=== PATIENT | male | born 1960 | race Caucasian/White ===

== ENCOUNTER 2018-06-15 09:37 | Observation (INO) | payer BC ==
[2018-06-15 10:41] LABS: BASO % 0.7 % (0.0-1.0); EOS # 0.1 10^3/uL (0.0-0.50); HEMOGLOBIN 17.2 g/dl (13.5-17.5); IMMATURE GRANULOCYTE % 0.3 % (0-3.0); LYMPH # 1.7 10^3/uL (1.5-4.5); LYMPH % 28.8 % (24.0-44.0); MEAN CORPUSCULAR HEMOGLOBIN 32.8 pg (27.0-33.0); MEAN CORPUSCULAR VOLUME 89.5 fl (80.0-96.0); MONO # 0.5 10^3/uL (0.0-0.8); NEUTROPHILS # 3.7 10^3/uL (1.8-7.7); NEUTROPHILS % 61.2 % (36.0-66.0); PLATELET COUNT, AUTOMATED 224 10^3/uL (150-450); RED BLOOD COUNT 5.25 10^6/uL (4.30-6.10); RED CELL DISTRIBUTION WIDTH 12.1 % (11.5-14.5); VENOUS BASE EXCESS -1.5 (-2.0-2.0); VENOUS HCO3 23.9 MEQ/L (23.0-27.0); VENOUS PARTIAL PRESSURE CO2 42.7 mmHg (38.0-50.0); VENOUS PARTIAL PRESSURE O2 44.6 mmHg (30.0-50.0); VENOUS PH 7.366 UNITS (7.330-7.430); VENOUS STANDARD HCO3 22.7 MEQ/L; VENOUS TOTAL CO2 25.2 MEQ/L (24.0-28.0)
[2018-06-15 10:46] LABS: MEAN CORPUSCULAR HGB CONC 36.5 g/dl (32.0-36.5)
[2018-06-15 10:53] LABS: INR 0.95; PROTHROMBIN TIME 12.8 SECONDS (12.1-14.4)
[2018-06-15 11:13] LABS: ANION GAP 9 MEQ/L (8-16); BLOOD UREA NITROGEN 20 MG/DL (7-18); CALCIUM LEVEL 9.2 MG/DL (8.5-10.1); CARBON DIOXIDE LEVEL 24 MEQ/L (21-32); CHLORIDE LEVEL 105 MEQ/L (98-107); CPK CREATINE PHOSPHOKINASE 47 U/L (39-308); CREATININE FOR GFR 1.04 MG/DL (0.70-1.30); FREE T4 1.03 NG/DL (0.76-1.46); GLOMERULAR FILTRATION RATE > 60.0 (>56); GLUCOSE, FASTING 211 MG/DL (70-100); POTASSIUM SERUM 4.1 MEQ/L (3.5-5.1); SODIUM LEVEL 138 MEQ/L (136-145); TROPONIN I < 0.02 NG/ML (< 0.10)
[2018-06-15 11:19] LABS: CK-MB VALUE MASS < 1.0 NG/ML (<3.6); MB/CK RELATIVE INDEX 2.12 (< OR =4); THYROID STIMULATING HORMONE 0.804 uIU/ML (0.358-3.740)
[2018-06-15] MEDS: NS 500 ML IV (12:22)
[2018-06-15] MEDS ORDERED: BISACODYL 5 MG TAB PO (13:00)
[2018-06-15] MEDS ORDERED: ONDANSETRON 4MG/2ML VIAL (J2405) IV (13:00)
[2018-06-15] MEDS: NS 1,000 ML IV ×2 (13:00→21:02)
[2018-06-15] MEDS ORDERED: ACETAMINOPHEN TAB 650MG DOSE (2X325MG) PO (13:00)
[2018-06-15 16:51] LABS: INFLUENZA A AMPLIFICATION NEGATIVE (NEGATIVE); INFLUENZA B AMPLIFICATION NEGATIVE (NEGATIVE)
[2018-06-15 16:53] LABS: CK-MB VALUE MASS < 1.0 NG/ML (<3.6); CPK CREATINE PHOSPHOKINASE 48 U/L (39-308); MB/CK RELATIVE INDEX 2.08 (< OR =4)
[2018-06-16 00:51] LABS: CK-MB VALUE MASS < 1.0 NG/ML (<3.6); CPK CREATINE PHOSPHOKINASE 64 U/L (39-308); MB/CK RELATIVE INDEX 1.56 (< OR =4)
[2018-06-16 05:54] LABS: ANION GAP 9 MEQ/L (8-16); BLOOD UREA NITROGEN 14 MG/DL (7-18); CALCIUM LEVEL 8.2 MG/DL (8.5-10.1); CARBON DIOXIDE LEVEL 23 MEQ/L (21-32); CHLORIDE LEVEL 110 MEQ/L (98-107); CREATININE FOR GFR 0.99 MG/DL (0.70-1.30); GLOMERULAR FILTRATION RATE > 60.0 (>56); GLUCOSE, FASTING 227 MG/DL (70-100); POTASSIUM SERUM 4.2 MEQ/L (3.5-5.1); SODIUM LEVEL 142 MEQ/L (136-145)
[2018-06-16 06:35] LABS: HEMATOCRIT 43.5 % (42.0-52.0); HEMOGLOBIN 15.5 g/dl (13.5-17.5); MEAN CORPUSCULAR HEMOGLOBIN 32.8 pg (27.0-33.0); MEAN CORPUSCULAR HGB CONC 35.6 g/dl (32.0-36.5); MEAN CORPUSCULAR VOLUME 92.2 fl (80.0-96.0); PLATELET COUNT, AUTOMATED 196 10^3/uL (150-450); RED BLOOD COUNT 4.72 10^6/uL (4.30-6.10); RED CELL DISTRIBUTION WIDTH 12.4 % (11.5-14.5); WHITE BLOOD COUNT 5.9 10^3/uL (4.0-10.0)
[2018-06-16] MEDS: NS 1,000 ML IV (06:35)
[2018-06-16 09:53] LABS: ESTIMATED AVERAGE GLUCOSE 160 MG/DL (60-110); HEMOGLOBIN A1c 7.2 %
[2018-06-16] MEDS: INFLUENZA QUADRIVALENT PF VACCINE 0.5ML SYRINGE (90686) IM (10:06)
[2018-06-16] MEDS ORDERED: MIDAZOLAM INJ 2 MG/2 ML VIAL (J2250) As Ordered (11:49)
[2018-06-16] MEDS ORDERED: fentaNYL 100 MCG/2 ML INJECTION (J3010) As Ordered (11:49)
[2018-06-16] MEDS ORDERED: LIDOCAINE 2% INJ 100 MG/5 ML SDV (FOR ANES.) As Ordered (11:51)
[2018-06-16] MEDS ORDERED: PROPOFOL 200 MG/20 ML VIAL As Ordered ×2 (11:51→11:53)
[2018-06-16] MEDS: CETACAINE SPRAY 5GM As Ordered (12:28)
[2018-06-16] MEDS: LIDOCAINE VISCOUS 2% SOLN 15ML UDC As Ordered (12:30)
[2018-06-16] MEDS ORDERED: ONDANSETRON 4MG/2ML VIAL (J2405) IV (13:15)
[2018-06-16] MEDS: LR 1,000 ML IV (13:15)
[2018-06-16] MEDS: metFORMIN 850 MG TAB PO (13:45)
[2018-06-16] MEDS ORDERED: EXCEDRIN MIGRAINE TABLET PO (15:45)
[2018-06-16] MEDS: EXCEDRIN MIGRAINE TABLET PO (16:02)
[2018-06-19 00:07] LABS: TESTOSTERONE FREE (DIRECT) 9.5 pg/mL (7.2-24.0)
== END 2018-06-16 17:02 | disposition home or self-care (01) ==
LOC: M ED 09:37 → M ED INP 12:48 → M PCU 15:57
DX: R55 Syncope and collapse (principal); E11.9 Type 2 diabetes mellitus without complications; G43.909 Migraine, unspecified, not intractable, without status migrainosus; Z86.79 Personal history of other diseases of the circulatory system; R53.81 Other malaise
CPT/HCPCS: 93320

== ENCOUNTER → 2018-06-20 | Outpatient (REF) | payer BC ==
[2018-06-20 20:01] LABS: ERYTHROCYTE SEDIMENTATION RATE 2 mm/hr (0-20)
[2018-06-20 22:18] LABS: RHEUMATOID FACTOR QUANT < 10.0 IU/ML (<15.0)
[2018-06-20 22:18] LABS: COMPLEMENT C3 128 MG/DL (90-180)
[2018-06-21 11:19] LABS: DRVV SCREEN 34.8 SEC
[2018-06-21 11:27] LABS: PTT LUPUS TYPE ANTICOAG SCREEN 0.9 (0-1.2)
[2018-06-22 16:18] LABS: ALBUMIN 5.18 GM/DL (3.29-5.55); ALBUMIN % 64.8 % (55.8-66.1); ALPHA-1-GLOBULIN % 3.4 % (2.9-4.9); ALPHA-1-GLOBULINS 0.27 GM/DL (0.17-0.41); ALPHA-2-GLOBULINS 0.57 GM/DL (0.42-0.99); ALPHA-2-GLOBULINS % 7.1 % (7.1-11.8); BETA-1-GLOBULINS 0.54 GM/DL (0.28-0.60); BETA-1-GLOBULINS % 6.8 % (4.7-7.2); BETA-2-GLOBULINS 0.46 GM/DL (0.19-0.55); BETA-2-GLOBULINS % 5.8 % (3.2-6.5); GAMMA GLOBULIN % 12.1 % (11.1-18.8); GAMMA GLOBULINS 0.97 GM/DL (0.65-1.58)
[2018-06-24 00:06] LABS: ANCA-ATYPICAL <1:20 titer (Neg:<1:20); ANTI DOUBLE STRAND-DNA AB 1 IU/mL (0-9); ANTINUCLEAR ANTIBODIES DIRECT Negative (Negative); CARDIOLIPIN IGA ANTIBODY <9 APL U/mL (0-11); CARDIOLIPIN IGG ANTIBODY <9 GPL U/mL (0-14); CARDIOLIPIN IGM ANTIBODY <9 MPL U/mL (0-12); COMPLEMENT TOTAL (CH50) > 65 U/mL (>41); CYTOPLASMIC NEUTROP AB ANCA-C <1:20 titer (Neg:<1:20); PERINUCLEAR AB ANCA-P <1:20 titer (Neg:<1:20); SJOGREN'S ANTI SS-A <0.2 AI (0.0-0.9); SJOGREN'S ANTI SS-B <0.2 AI (0.0-0.9)
== END ==
LOC: M LABNEURO 13:38
DX: R55 Syncope and collapse (principal); G43.909 Migraine, unspecified, not intractable, without status migrainosus

== ENCOUNTER 2018-07-03 17:14 | Emergency (ER) | payer BC ==
[2018-07-03 18:15] LABS: BASO # 0.1 10^3/uL (0.0-0.2); BASO % 0.6 % (0.0-1.0); EOS # 0.1 10^3/uL (0.0-0.50); EOS % 0.8 % (0.0-3.0); HEMATOCRIT 49.7 % (42.0-52.0); HEMOGLOBIN 18.1 g/dl (13.5-17.5); IMMATURE GRANULOCYTE % 0.4 % (0-3.0); LYMPH # 2.2 10^3/uL (1.5-4.5); LYMPH % 26.4 % (24.0-44.0); MEAN CORPUSCULAR HEMOGLOBIN 32.5 pg (27.0-33.0); MEAN CORPUSCULAR HGB CONC 36.4 g/dl (32.0-36.5); MEAN CORPUSCULAR VOLUME 89.2 fl (80.0-96.0); MONO # 0.6 10^3/uL (0.0-0.8); MONO % 7.4 % (0.0-5.0); NEUTROPHILS # 5.3 10^3/uL (1.8-7.7); NEUTROPHILS % 64.4 % (36.0-66.0); PLATELET COUNT, AUTOMATED 257 10^3/uL (150-450); RED BLOOD COUNT 5.57 10^6/uL (4.30-6.10); RED CELL DISTRIBUTION WIDTH 12.2 % (11.5-14.5); WHITE BLOOD COUNT 8.3 10^3/uL (4.0-10.0)
[2018-07-03] MEDS: METOCLOPRAMIDE INJ 10MG/2ML VIAL (J2765) IV (18:16)
[2018-07-03] MEDS: NS 1,000 ML IV (18:16)
[2018-07-03 18:32] LABS: ANION GAP 11 MEQ/L (8-16); BLOOD UREA NITROGEN 19 MG/DL (7-18); CALCIUM LEVEL 8.9 MG/DL (8.5-10.1); CARBON DIOXIDE LEVEL 21 MEQ/L (21-32); CHLORIDE LEVEL 110 MEQ/L (98-107); CREATININE FOR GFR 1.12 MG/DL (0.70-1.30); GLOMERULAR FILTRATION RATE > 60.0 (>56); GLUCOSE, FASTING 127 MG/DL (70-100); POTASSIUM SERUM 3.8 MEQ/L (3.5-5.1); SODIUM LEVEL 142 MEQ/L (136-145)
[2018-07-03] MEDS: KETOROLAC 30 MG/ML VIAL (J1885) IV (19:27)
== END 2018-07-03 20:28 | disposition home or self-care (01) ==
LOC: M ED 17:14
DX: G43.909 Migraine, unspecified, not intractable, without status migrainosus (principal); I47.1 Supraventricular tachycardia; Z79.84 Long term (current) use of oral hypoglycemic drugs
CPT/HCPCS: J1885

== ENCOUNTER 2018-10-14 06:33 | Day surgery (SDC) | payer BC ==
--- NOTE | 2018-10-08 15:05 | CR ---
DATE OF CONSULTATION: 10/07/2018 REQUESTING PROVIDER: Dr. Harrell REASON FOR CONSULTATION: Colonoscopy tentatively scheduled for the first week of October. Dear Dr. Harrell: Thank you for asking me to see Dr. Vidal Fang in consultation prior to his colonoscopy. 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 The patient ultimately feels the syncopal spell was related to his severe migraines. The patient had felt as if a migraine was coming on, but it never developed any he experienced exhaustion, fatigue, cognitive impairment, mild but tolerable. He got up the morning of 06/15/2018 and found himself on the floor. He was nauseous, lightheaded for 30 minutes and laid down but symptoms persisted. He went to [facility] emergency room and he had a full evaluation done at that time, including an electrocardiogram (EKG), chest x-ray, head CT transthoracic echo and TRAN, which were all essentially normal, but the patient noted to easily be bradycardic with Valsalva maneuvers. Carotid ultrasounds were normal. The patient ultimately was felt to have syncopal spell related to his poorly controlled migraines. The patient does have a history of a hospitalization for supraventricular tachycardia (SVT) in 2008 with full cardiac workup showing no pathology. During recent hospitalization in early June, the patient was diagnosed with type 2 diabetes with an A1/c of 7.2 and has been treated with metformin and diet, exercise intervention with good results. The patient has had extensive evaluation for his migraines with local neurology group. His ultimately well controlled after having had Botox shots 6 weeks ago and being placed on fluoxetine. Since that time, he has had no severe migraines. He does have ibuprofen, Fioricet and Excedrin migraine available to him. If he feels a mild headache coming on he will take medicine early and abort progression to severe migraine Patient has a history of cervical radiculopathy with positional left upper extremity paresthesias. The patient otherwise denies any fevers or chills, chest pain or shortness of breath. 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 The patient does check his home blood sugars and they run 180 to 190s in the morning and the remainder of the day are running 90s to 110s. PAST MEDICAL HISTORY: 1. Migraines since the age of 6. 2. Extensive recent evaluation included MRI, MRA, EEG with no significant pathology found. Presently good response to Botox and fluoxetine. 2. Cervical radiculopathy, known disk herniation 2004. 3. SVT / hypoxic event in 2008, two days after nasal flu vaccine. Normal evaluation including CT, echo event monitor. 4. Syncopal spell 2017, normal TRAN, EKG, chest x-ray, carotid ultrasound, and head CT. 5. Pre diabetes 2011, life insurance physical. 6. Type 2 diabetes June 2018. MEDICATIONS: - baby aspirin 81 mg daily - Excedrin migraine as needed for migraine - Fioricet as needed for migraine - fluoxetine 20 mg daily - ibuprofen as needed for migraine - metformin ER 500 mg two by mouth twice a day ALLERGIES: No known drug allergies. SOCIAL HISTORY: Happily , four daughters ages 15-22. 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 Never smoked. Rare alcohol as this causes migraines. He does consume caffeinated beverages, but he does not do it regularly, he has migraines. He drinks iced tea and coffee. He has never smoked. FAMILY HISTORY Father of and age 41 from an motor vehicle accident. Mother hypertension, migraines. Four daughters, several with migraines. Brother with brother diabetes who is an alcoholic. Another brother with hyperlipidemia, hypertension, migraines. PHYSICAL EXAMINATION: Thin, healthy-appearing male in no acute distress. Vital signs are weight 162 with a Body Mass Index (BMI) of 26. His oxygen saturation is 97%, blood pressure 122/88 with a heart rate of 76. HEENT: Head is normocephalic. Neck is supple. Pupils equal, reactive to light. Extraocular movements are intact. Conjunctivae not injected. Sclerae anicteric. Vision grossly normal. Ears with normal tympanic membranes and auditory canals. Tongue midline. Posterior pharynx without inflammation. Neck is supple. No thyromegaly, jugular venous distention (JVD), or carotid bruits. RESPIRATORY: Clear to auscultation, resonant to percussion. CARDIOVASCULAR: Regular rate and rhythm. No murmur, rub, gallop. ABDOMEN: Normoactive bowel sounds, soft, nontender. No hepatosplenomegaly. EXTREMITIES: No cyanosis, clubbing or edema. Normal reflexes. DERMATOLOGIC: No rashes, bruises, abnormal lesions. NEUROLOGIC: Alert and oriented. Cranial nerves II-XII intact. LABORATORY DATA: EKG 06/15/2018 normal sinus rhythm with a rate of 81, axis of -8, normal R-wave progression, no atrial or ventricular hypertrophy. There are T-waves in III and aVF of questionable significance. Transesophageal echo 06/16/2018 normal LV function. No significant valvular disease or atherosclerosis. 10/07/2018 A1c 5.7. Normal CBC. Med profile significant for sugar 147. Lipids significant for triglycerides of 289. IMPRESSION DrMayi Vidal Fang is a 58-year-old gentleman with cardiovascular risk factors positive for age, diabetes 2, hyperlipidemia, has no signs or symptoms indicative of cardiovascular ischemia and is felt to be at low risk for cardiovascular complications from the proposed surgical intervention, which can be further minimized by the followin. Diabetes 2. Hold metformin 2 days before surgical intervention. 2. Hyperlipidemia, new diagnosis of diabetes. The patient to be started on rosuvastatin 5 mg daily. 3. Migraines, well controlled with fluoxetine. He will continue this perioperatively. No nonsteroidal antiinflammatory drugs (NSAIDs) for 1 week prior to surgical intervention. 4. SVT. Previous negative evaluation, asymptomatic. The patient can make himself bradycardic with Valsalva maneuvers. No need for further evaluation or treatment. 5. Syncopal spell. Normal echo, head CT, carotid ultrasound. No further cause. [place] to be related to poorly controlled migraines. No need for further evaluation or treatment. Thank you very much for this consultation. Please call with questions or concerns.
[~2018-10-14] VITALS: Ht 167.6 cm; Wt 72.3 kg
[~2018-10-14 06:33] MED LIST: FIOR1CAP PO; FIORCAP3 PO; GLUC1000 PO; GLUC850T PO; IMIT6INJ SC; PROZ20CA11 PO; [UNRECOGNIZED DRUG - SUPPLY]
[2018-10-14] MEDS ORDERED: NS 1,000 ML IV ONE (07:00)
[2018-10-14] MEDS ORDERED: PROPOFOL 500 MG/50 ML VIAL As Ordered ONE (07:43)
[2018-10-14] MEDS ORDERED: LIDOCAINE 2% INJ 100 MG/5 ML SDV (FOR ANES.) As Ordered ONE (07:43)
--- NOTE | 2018-10-14 08:17 | ROOR ---
Patient Name: Vidal Fang Procedure Date: 10/14/2018 7:29 AM Date of : 1960 Age: 58 Room: [facility] Gender: Male Note Status: Finalized Procedure: Colonoscopy Indications: Screening for colorectal malignant neoplasm Providers: Bernardo Harrell MD Referring MD: Miladis DOE MD Requesting Provider: Medicines: Monitored Anesthesia Care Complications: No immediate complications. Procedure: Pre-Anesthesia Assessment: - Prior to the procedure, a History and Physical was performed, and patient medications and allergies were reviewed. The patient is competent. The risks and benefits of the procedure and the sedation options and risks were discussed with the patient. All questions were answered and informed consent was obtained. Patient identification and proposed procedure were verified by the physician, the nurse and the anesthesiologist in the procedure room. Mental Status Examination: alert and oriented. Airway Examination: normal oropharyngeal airway and neck mobility. Respiratory Examination: clear to auscultation. CV Examination: normal. Prophylactic Antibiotics: The patient does not require prophylactic antibiotics. Prior Anticoagulants: The patient has taken no previous anticoagulant or antiplatelet agents. ASA Grade Assessment: II - A patient with mild systemic disease. After reviewing the risks and benefits, the patient was deemed in satisfactory condition to undergo the procedure. The anesthesia plan was to use monitored anesthesia care (MAC). Immediately prior to administration of medications, the patient was re-assessed for adequacy to receive sedatives. The heart rate, respiratory rate, oxygen saturations, blood pressure, adequacy of pulmonary ventilation, and response to care were monitored throughout the procedure. The physical status of the patient was re-assessed after the procedure. The Colonoscope was introduced through the anus and advanced to the terminal ileum, with identification of the appendiceal orifice and IC valve. The colonoscopy was performed without difficulty. The patient tolerated the procedure well. The quality of the bowel preparation was adequate to identify polyps 6 mm and larger in size and fair. The terminal ileum, ileocecal valve, appendiceal orifice, and rectum were photographed. Scope insertion time was 4 minutes. Scope withdrawal time was 10 minutes. The total duration of the procedure was 16 minutes. Findings: The perianal and digital rectal examinations were normal. The terminal ileum appeared normal. A moderate amount of semi-liquid stool was found from rectum to ascending colon, interfering with visualization. Lavage of the area was performed using a large amount of sterile water, resulting in clearance with good visualization. A 3 mm polyp was found in the ascending colon. The polyp was sessile. The polyp was removed with a jumbo cold forceps. Resection and retrieval were complete. Verification of patient identification for the specimen was done by the physician and nurse using the patient's name, date and medical record number. Estimated blood loss was minimal. A 8 mm polyp was found in the transverse colon. The polyp was sessile. The polyp was removed with a jumbo cold forceps. Resection and retrieval were complete. Four sessile polyps were found in the recto-sigmoid colon. The polyps were 4 to 8 mm in size. These polyps were removed with a jumbo cold forceps. Resection and retrieval were complete. Multiple small and large-mouthed diverticula were found from sigmoid to ascending colon. There was no evidence of diverticular bleeding. External and internal hemorrhoids were found during retroflexion. The hemorrhoids were medium-sized. Impression: - Preparation of the colon was fair. - The examined portion of the ileum was normal. - Stool from rectum to ascending colon. - One 3 mm polyp in the ascending colon, removed with a jumbo cold forceps. Resected and retrieved. - One 8 mm polyp in the transverse colon, removed with a jumbo cold forceps. Resected and retrieved. - Four 4 to 8 mm polyps at the recto-sigmoid colon, removed with a jumbo cold forceps. Resected and retrieved. - Moderate diverticulosis from sigmoid to ascending colon. There was no evidence of diverticular bleeding. - External and internal hemorrhoids. Recommendation: - Patient has a contact number available for emergencies. The signs and symptoms of potential delayed complications were discussed with the patient. Return to normal activities tomorrow. Written discharge instructions were provided to the patient. - High fiber diet. - Use fiber, for example Citrucel, Fibercon, Konsyl or Metamucil. - Await pathology results. - Repeat colonoscopy in 3 - 5 years for surveillance based on pathology results. - Based on the biopsy results you will receive a phone call from GI clinic in 2-3 weeks to review the pathology results AND/OR your results will be faxed to your Primary care physician. - Return to primary care physician. Bernardo Harrell MD Bernardo Harrell MD 10/14/2018 8:16:54 AM This report has been signed electronically. Number of Addenda: 0 Note Initiated On: 10/14/2018 7:29 AM Estimated Blood Loss: Estimated blood loss was minimal.
[2018-10-14 08:30] VITALS: BP 155/92
== END 2018-10-14 08:56 | disposition home or self-care (01) ==
LOC: M OPP 06:33
PROVIDERS: ATTEND Internal Medicine Gastroenterology
DX: Z12.11 Encounter for screening for malignant neoplasm of colon (principal); D12.2 Benign neoplasm of ascending colon; K63.5 Polyp of colon; K57.30 Diverticulosis of large intestine without perforation or abscess without bleeding; K64.8 Other hemorrhoids; E11.9 Type 2 diabetes mellitus without complications; I10 Essential (primary) hypertension; G43.909 Migraine, unspecified, not intractable, without status migrainosus; Z79.84 Long term (current) use of oral hypoglycemic drugs; Z79.899 Other long term (current) drug therapy

== ENCOUNTER → 2019-01-04 | Outpatient (CLI) | payer BC ==
[2019-01-04 09:28] LABS: BASO # 0.1 10^3/uL (0.0-0.2); BASO % 0.8 % (0.0-1.0); EOS # 0.1 10^3/uL (0.0-0.50); EOS % 1.5 % (0.0-3.0); HEMATOCRIT 42.6 % (42.0-52.0); HEMOGLOBIN 14.7 g/dl (13.5-17.5); LYMPH # 1.9 10^3/uL (1.5-4.5); LYMPH % 30.4 % (24.0-44.0); MEAN CORPUSCULAR HEMOGLOBIN 31.3 pg (27.0-33.0); MEAN CORPUSCULAR HGB CONC 34.5 g/dl (32.0-36.5); MEAN CORPUSCULAR VOLUME 90.6 fl (80.0-96.0); MONO # 0.5 10^3/uL (0.0-0.8); MONO % 7.5 % (0.0-5.0); NEUTROPHILS # 3.6 10^3/uL (1.8-7.7); NEUTROPHILS % 58.8 % (36.0-66.0); PLATELET COUNT, AUTOMATED 252 10^3/uL (150-450); WHITE BLOOD COUNT 6.2 10^3/uL (4.0-10.0)
[2019-01-04 09:55] LABS: ALT/SGPT 32 U/L (12-78); BILIRUBIN,DIRECT 0.2 MG/DL (0.0-0.2); BILIRUBIN,TOTAL 0.6 MG/DL (0.2-1.0); BLOOD UREA NITROGEN 11 MG/DL (7-18); CALCIUM LEVEL 8.8 MG/DL (8.5-10.1); CARBON DIOXIDE LEVEL 28 MEQ/L (21-32); CHLORIDE LEVEL 109 MEQ/L (98-107); CHOLESTEROL LEVEL 82 MG/DL (<200); CHOLESTEROL RISK RATIO 3.727 (<5); CPK CREATINE PHOSPHOKINASE 76 U/L (39-308); CREATININE FOR GFR 0.99 MG/DL (0.70-1.30); GLOMERULAR FILTRATION RATE > 60.0 (>56); GLUCOSE, FASTING 125 MG/DL (70-100); HDL CHOLESTEROL 22 MG/DL (>40); LDL CHOLESTEROL 26 MG/DL (<100); NON-HDL-C 60 MG/DL; SODIUM LEVEL 144 MEQ/L (136-145); TOTAL PROTEIN 6.5 GM/DL (6.4-8.2); TRIGLYCERIDES LEVEL 169 MG/DL (<150)
[2019-01-04 10:15] LABS: HEMOGLOBIN A1c 6.2 %
== END ==
LOC: M LAB 08:24
PROVIDERS: ATTEND Surgery Vascular Surgery
DX: E78.9 Disorder of lipoprotein metabolism, unspecified (principal); E08.9 Diabetes mellitus due to underlying condition without complications

== ENCOUNTER → 2019-04-19 | Outpatient (CLI) | payer BC ==
[2019-04-19 13:22] LABS: HEMOGLOBIN A1c 6.5 %
[2019-04-19 13:36] LABS: CHOLESTEROL RISK RATIO 3.947 (<5)
== END ==
LOC: M LAB 12:34
PROVIDERS: ATTEND Internal Medicine
DX: E11.9 Type 2 diabetes mellitus without complications (principal); E78.5 Hyperlipidemia, unspecified